=== PATIENT | male | born 1940 | race Caucasian/White ===

== ENCOUNTER 2018-04-11 17:42 | Emergency (ER) | payer MEDICARE, BC ==
[~2018-04-11] VITALS: Ht 172.7 cm; Wt 52.2 kg
--- NOTE | 2018-04-11 18:05 | NUR ---
Pt unable to provide information about home medications, no information provided by EMS.
[2018-04-11] MEDS ORDERED: ASPIRIN (18:21)
--- NOTE | 2018-04-11 18:32 | NUR ---
pt to ct scan via [facility].
[2018-04-11] MEDS ORDERED: DONE10TA44 PO (18:43)
[2018-04-11] MEDS ORDERED: RANI150T8 PO (18:43)
[2018-04-11] MEDS ORDERED: ASPI81TA31 PO (18:43)
[2018-04-11] MEDS ORDERED: ATOR40TA PO (18:43)
[2018-04-11] MEDS ORDERED: CARB1TAB21 PO (18:43)
[2018-04-11] MEDS ORDERED: LOSA25TA13 PO (18:43)
--- NOTE | 2018-04-11 18:44 | NUR ---
Pt's current medication list obtained from and pt's record updated accordingly.
--- NOTE | 2018-04-11 19:14 | NUR ---
[facility] REPORT TO PM SHIFT
--- NOTE | 2018-04-11 20:11 | NUR ---
Patient discharged to home in stable conditon. Written and verbal after care instructions given. Patient verbalizes understanding of instructions. Pt left ER via wheelchair with and son. All belongings with pt. VSS. NAD noted.
[2018-04-11 20:13] VITALS: BP 141/71
[2018-04-11] MEDS ORDERED: LIDOCAINE HCL 2% 20 ML VIAL TP ONE (20:15)
== END 2018-04-11 20:13 | disposition home or self-care (01) ==
LOC: ER 17:42
DX: S01.01XA Laceration without foreign body of scalp, initial encounter (principal); G20 Parkinson's disease; R51 Headache; W18.30XA Fall on same level, unspecified, initial encounter; Y93.89 Activity, other specified; Y92.89 Other specified places as the place of occurrence of the external cause; Y99.8 Other external cause status
CPT/HCPCS: 70450; 72125; 93005; A4663